=== PATIENT | male | born 1945 | race Caucasian/White ===

== ENCOUNTER → 2024-01-03 09:37 | Outpatient (REF) | payer MEDICARE, OTHER, SELFPAY | LOC: HWCARD 09:37 | PROVIDERS: ATTENDING PHYSICIAN Nurse Practitioner Family | DX: R06.02 Shortness of breath (principal) | CPT/HCPCS: 93005 ==

== ENCOUNTER → 2024-01-05 12:13 | Outpatient (REF) | payer MEDICARE, OTHER, SELFPAY | LOC: RAD 12:13 | PROVIDERS: ATTENDING PHYSICIAN Nurse Practitioner Family | DX: R79.89 Other specified abnormal findings of blood chemistry (principal); R17 Unspecified jaundice | CPT/HCPCS: 76700 ==

== ENCOUNTER 2024-01-06 14:51 | Observation (INO) | payer MEDICARE, OTHER, SELFPAY ==
[2024-01-06 09:44] VITALS: BP 169/89; BMI 28.7
--- NOTE | 2024-01-06 10:22 | ED.GENMED ---
History of Present Illness
General
Chief Complaint: Abdominal Symptoms
Source: patient and spouse
Time Seen by Provider: 01/06/24 10:07
Travel History
Have you had any contact with someone who has COVID-19?: No
Do you have any symptoms of coronavirus? Fever > 100 degrees, chills, cough, shortness of breath, sore throat, loss of taste or smell, muscle aches, or headache?: No
History of Present Illness
History of Present Illness:
78-year-old male with past medical history of hypertension, hyperlipidemia, status postcholecystectomy, sent to the emergency department by primary care provider for evaluation after patient had an abnormal abdominal ultrasound done yesterday
(triage notes and MRI was done but patient did not have an MRI). Patient states that a couple weeks ago he was feeling generally unwell, had some blood work and urinalysis done which she states were little bit abnormal but on a follow-up visit
states everything seem to be improved. He did note some abdominal discomfort which is why the ultrasound was done and initially reported possible cholecystitis however due to patient having a prior cholecystectomy this was addended to patient
possibly having a postoperative seroma. Patient's cholecystectomy was done 5 or 6 years ago at an outside institution which she did report had complications including a nonhealing wound. Patient has no concerns at this time and is stating he
otherwise feels very well
Past History
Past History
ED Past Medical History: HTN and Hypercholesterolemia
ED Past Surgical History: Cholecystectomy and Orthopedic
Social History
Tobacco: Non-smoker
Alcohol: None
Drug: None
Personal:
Living: with family
Review of Systems
Review of Systems
All Other Systems: ROS reviewed and negative except as documented in HPI and ROS
Phy Exam
Physical Exam
Physical Exam:
GENERAL: Alert , in no apparent distress
EYE: clear conjunctiva b/l
HEAD: NCAT
ENT: o/p clr, mmm.
CARDIAC: Regular rate and rhythm .
LUNGS: Clear breath sounds bilaterally, no acute respiratory distress, no wheezes/rales/rhonchi
ABDOMEN: Soft, without focal tenderness, no r/g, no cvat
NEUROLOGICAL: Alert and oriented
SKIN: Warm and dry, skin intact.
MUSCULOSKELETAL: well perfused.
PSYCH: Normal and appropriate interaction.
Scores
Heart Failure Risk
Heart Failure Risk Score: Not Applicable
Heart Score for Chest Pain Patients
STEMI patient?: Not applicable
Withdrawal Assessment of Alcohol
Withdrawal Assessment Completed?: Not applicable
Course
Orders/Labs/Results
Orders:
Orders
01/06/24 10:18
CT Abd/pelvis W Iv Cont Urgent
Comment:
Reason For Exam: abnormal US yesterday, ? RUQ seroma
01/06/24 10:23
Complete Blood Count/With Diff Urgent
Comprehensive Metabolic Panel Urgent
Lipase Urgent
01/06/24 10:31
Urinalysis Reflex To Culture Urgent
Date Specimen was Collected: 01/06/24
Time Specimen was Collected: 10:24
Urine Microscopic Reflex Cult Urgent
Urine Culture Urgent
KATELYNN Source: U
Specimen Description:
Obtained by: Random
Date Specimen was Collected: 01/06/24
Time Specimen was Collected: 10:24
Abnormal Lab Results
01/06/24 01/06/24
10:23 10:31
RBC 4.41 L 10^6/uL
(4.70-6.10)
MCV 94.1 H fL
(80.0-94.0)
MCH 31.7 H pg
(27.0-31.0)
Monocytes % 9.6 H %
(1.7-9.3)
AST 61 H U/L
(17-59)
ALT 149 H U/L
(0-50)
Alkaline Phosphatase 274 H U/L
(38-126)
Urine Ketones 1+ A
(Negative)
Urine Bilirubin 1+ A
(Negative)
Leukocyte Esterase Rfl 1+ A
(Negative)
01/06/24 10:23
01/06/24 10:23
Vital Signs
Initial and Last Documented VS:
Initial Vital Signs
Temp Pulse Resp BP Pulse Ox
97.6 F 70 16 169/89 99
01/06/24 09:44 01/06/24 09:44 01/06/24 09:44 01/06/24 09:44 01/06/24 09:44
Last Documented Vital Signs
Temp Pulse Resp BP Pulse Ox
97.6 F 70 16 169/89 99
01/06/24 09:44 01/06/24 09:44 01/06/24 09:44 01/06/24 09:44 01/06/24 09:44
MDM/Problems Addressed
Differential Diagnosis Includes:
Postoperative changes, minimal concern for any acute surgical complication, no observable signs of sepsis
MDM/Problems Addressed:
78-year-old male present emergency department request of primary care physician for evaluation after he had an abnormal ultrasound done yesterday. Patient's ultrasound initially was read as cholecystitis but in the setting of patient having prior
cholecystectomy this was addended to possibly having a postoperative seroma. Primary care still advised patient come to the ER for further evaluation. Radiology did recommend a CT scan to better evaluate the area so will order CT as well as basic
labs. Will contact patient's primary care provider following completion of studies.
*Pulse Oximetry
Patient hypoxic: no
*Critical Care Note
Total Time (30-74mins, 75-104mins- exclusive of procedures): Not Applicable
Data Reviewed
Review of Other/Old Records Reveals: Labs and Radiology Studies
Source: patient and spouse
Patient Management
Discussion with other providers: PCP
Escalation/DeEscalation of care consider admission/obs:
I spoke to the primary care provider office staff due to patient's LFT abnormalities to see if there were any previous abnormal liver function test. On the patient had an alkaline phosphatase of 596, AST of 135 and ALT of 356. Patient's liver
function tests are improved today compared to 3 days ago which is reassuring. Awaiting CT.
12:30 PM: Case was discussed with radiology that his CT also did appear that he still had a gallbladder however after consultation with patient's primary care provider office it was confirmed that patient did in fact have his gallbladder removed in
2016 at [facility]. Radiology was also able to find an outside ultrasound from [facility] in 2019 where they were evaluating the right upper quadrant surgical site which also appeared to have a similar appearance as to
what was found on CT scan today. Radiology believes this may be a fluid tract with calcification. I notified our general surgery team who will evaluate the imaging. I also notified patient's primary care provider and the nurse practitioner who
saw him yesterday.
1 PM: Studies were reviewed with general surgery who recommends that patient be admitted for MRCP and HIDA scan to further evaluate. Initial plan was to have hospitalist admit with general surgery and consult however general surgery after
evaluating the patient will admit to their service. Hospitalist team is updated that general surgery will admit.
ED Attending Note
-
Portions of this chart may have been created with voice recognition software.� Occasional wrong word or��sound alike� substitutions may have occurred due to the inherent limitations of voice recognition software.
Discharge Plan
Departure
Patient Disposition: Admit
Date of Disposition: 01/06/24
Time of Disposition: 13:03
Presentation/result/management discussed w/ accepting /: Mohsen
Discharge Problem:
Retained gallstones following laparoscopic cholecystectomy, Elevated LFTs
Prescriptions:
No Action
No Current Medications
0
Referrals:
Jose F Morton DO [Family Provider] -
Interventions
Interventions:
*Risk Screen - Suicide Last Done: 01/06/24 09:44
*Neglect/Abuse Screening Last Done: 01/06/24 09:44
*ED COVID-19 Vaccine History Last Done: 01/06/24 09:44
Discharge Date and Time
Print Language: SENEGALESE
[2024-01-06 10:38] LABS: % Basophils 0.5 % (0-2); % Eosinophils 1.7 % (0-6); % Immature Granulocytes 0.5 % (0-0.5); % Lymphocytes 20.7 % (20.5-51.1); % Monocytes 9.6 % (1.7-9.3); Absolute Eosinophils 0.1 10^3/uL (0-0.7); Absolute Lymphocytes 1.2 10^3/uL (1.2-3.4); Absolute Monocytes 0.6 10^3/uL (0.1-0.6); Absolute Neutrophils 3.9 10^3/uL (1.4-6.5); Hematocrit 41.5 % (39.0-52.0); Mean Corp Hgb Conc. 33.7 g/dL (33.0-37.0); Mean Corpuscular Hgb 31.7 pg (27.0-31.0); Mean Corpuscular Volume 94.1 fL (80.0-94.0); Mean Platelet Volume 8.8 fL (7.4-10.4); Nucleated Red Blood Cells % 0 % (-); Platelet Count 369 10^3/uL (130-400); Red Blood Cell Count 4.41 10^6/uL (4.70-6.10); Red Cell Dist. Width 12.5 % (11.5-14.5); White Blood Cell Count 5.8 10^3/uL (4.8-10.8)
[2024-01-06 11:08] LABS: Urine Albumin Trace (Neg - Trace); Urine Bilirubin 1+ (Negative); Urine Character Clear (Clear); Urine Color Yellow; Urine Glucose Negative (Negative); Urine Ketone 1+ (Negative); Urine Leukocyte 1+ (Negative); Urine Nitrite Negative (Negative); Urine Occult Blood Negative (Negative); Urine Urobilinogen 1+ (Neg - 1+)
[2024-01-06 11:09] LABS: ALT (SGPT) 149 U/L (0-50); AST (SGOT) 61 U/L (17-59); Albumin 4.5 g/dl (3.5-5.0); Alkaline Phosphatase 274 U/L (38-126); Blood Urea Nitrogen 12 mg/dl (9-20); Calcium 9.5 mg/dl (8.4-10.2); Carbon Dioxide 25 mmol/L (22-30); Chloride 106 mmol/L (98-107); Estimated Creatinine Clearance 71 ml/min; Glucose 94 mg/dl (70-99); Lipase 92 U/L (23-300); Potassium 4.3 mmol/L (3.5-5.1); Sodium 138 mmol/L (135-145); Total Bilirubin 1.3 mg/dl (0.2-1.3); Total Protein 7.8 g/dl (6.3-8.2); eGFR > 60.00
[2024-01-06 11:19] LABS: Urine Red Blood Cell 0-2 /HPF (0-2); Urine Squamous Cell 0-2 /LPF (Few)
--- NOTE | 2024-01-06 13:57 | HPS.HSE ---
Addendum entered and electronically signed by Vaibhav Connolly MD 01/06/24 14:57:
Patient seen and examined with surgical [employer]. Agree with history and physical as outlined below in H&P.
HPI: 78-year-old male who underwent laparoscopic cholecystectomy 2016 at [facility]. He reports that this was reportedly a challenging operation, had a postoperative SUSAN which was removed prior to discharge however his right lateral drain site
developed a chronic sinus tract that was intermittently emitting gallstones for 2 to 3 years postop. Reviewing medical records I actually saw him in the office in 2019 just as he was healing for good his sinus tract. I had provided him with a
prescription for CT abdomen pelvis but he had chosen to follow his symptoms expectedly after the skin site healed.
Patient and his state that he has been doing very well without any reported symptoms until he acutely began feeling sick about 3 weeks ago. Generalized abdominal discomfort, fatigue and right upper quadrant tenderness with dark urine was
noted. No fevers chills or sweats. His began looking on the Internet and recommended that he start a low-fat diet which dramatically improved his abdominal pain but his fatigue persisted. He saw his primary care provider last week and workup
ensued with laboratory testing which was notable for elevated LFTs which was notable for Alkaline phosphatase of 597, bilirubin 2.1, AST 135 and ALT of 356. His previous liver function profile testing from 2021 was normal for comparison. He
subsequently had an abdominal ultrasound yesterday which was suggestive of a 9 mm calculus in the neck of the gallbladder with mild wall thickening but no pericholecystic fluid. Common bile duct measuring 6.7 mm. No biliary ductal dilation. With
this report he was referred to the emergency department for evaluation due to possible postoperative pericholecystic fluid collection versus retained gallbladder.
Patient does not have any significant medical history. Past surgical history only notable for laparoscopic cholecystectomy, right shoulder surgery, inguinal hernia repair 1972 and umbilical herniorrhaphy.
No allergies, no regular home medications.
AFVSS
No acute distress, awake alert orient x 3
Abdomen: Soft, nondistended, slight tenderness to palpation right upper quadrant, no rebound rigidity or guarding. Previous laparoscopic surgical scars healed.
Skin: No jaundice
Eyes, no scleral icterus
Laboratory tests reviewed. White blood cell count 5.8, hemoglobin 14.0 and platelets 369. Electrolytes and BUN within normal limits. Bilirubin has improved to 1.3. AST, ALT elevated at 61 and 149 and alkaline phosphatase 274. Lipase normal.
CT abdomen/pelvis imaging reviewed: There is a fluid-filled structure in the right upper quadrant of the abdomen in the region of the previous gallbladder fossa suggestive of either retained gallbladder or postoperative chronic fluid collection.
There appears to be 2 calcifications in this area which are likely either retained stones or stones remaining in partial cholecystectomy. Some chronic scarring but no CT evidence to suggest abscess. Some thickening of the wall of the gastric
antrum which is in the region of residual gallbladder/fluid collection.
Assessment/plan: 78-year-old male with elevated LFTs and possible retained gallbladder with stones versus retained stones in the gallbladder fossa with resultant chronic seroma. Given his recent symptomatology and review of radiographic imaging
more suspicious for retained gallbladder with stones and recent episode of passed stone or debris/choledocholithiasis as cause of acute GI symptoms/fatigue.
Further workup and evaluation with MRCP to rule out choledocholithiasis and better image GB fossa
Will obtain HIDA scan as well to see if there is any communication with either suspected residual gallbladder or chronic fluid collection around retained stones.
There does not appear to be an acute infectious component therefore will continue to observe off antibiotic therapy for now
IV fluid hydration
Clear liquids until further workup completed today and into tomorrow
Repeat CBC and CMP tomorrow
Further recommendations regarding management pending radiographic imaging results.
Original Note:
Family Physician
-
Family Physician: Jose F Morton
Chief Complaint
-
Fatigue
History of Present Illness
This is an 78 yo male with a history of htn and prior cholecystectomy in 2017 at [facility]. He notes he had a drain post operatively for several days with noted black stones from it. The drain was removed a few days post operatively,
however, he notes the drain site took 2-3 years to heal. About three weeks ago, he was feeling unwell with generalized abdominal symptoms and intermittent RUQ tenderness as well as dark brown urine. He has had increasing fatigue. He started a low
fat diet with improvement in GI symptoms but fatigue persisted. He was seen and evaluated as an outpatient by GI with US and LFT's done and abnormal prompting the recommendation to present through the ED for evaluation. He currently denies pain,
nausea or vomiting. His abdomen is non-tender currently. He denies fevers or chills.
Medical History
Past Medical History
Past Medical History: Reports HTN and Hypercholesterolemia
Past Surgical History: Reports Cholecystectomy (2017), Orthopedic (shoulder) and Other (Inguinal and umbilical hernia repairs)
Social History
Tobacco: Non-smoker
Alcohol: None
Family History
Family History: Not pertinent
Allergies / Home Medications
Allergies reflects when Allergies were last updated in [facility] [facility].
Home Medications with original date entered in [employer] [facility]
Allergy/Medication List:
Patient Allergies
Allergy/AdvReac Type Severity Reaction Status Date / Time
No Known Allergies Allergy Unverified 01/06/24 09:46
�Medication �Instructions �Recorded �Confirmed �Type
No Meds [No Current Medications] 01/06/24 01/06/24 History
Review of Systems
-
History Source: Patient and Family
A 12 point ROS was completed and negative except as noted: Yes
Physical Exam
Vital Signs
Vital Signs
Temp Pulse Resp BP Pulse Ox
97.6 F 70 16 169/89 99
01/06/24 09:44 01/06/24 09:44 01/06/24 09:44 01/06/24 09:44 01/06/24 09:44
Physical Exam
General: Well Developed and Well Nourished
HEENT: Moist mucous membranes
Respiratory: Non Labored Respirations
GI: Soft, Non Tender and Non Distended
Skin: Warm and Dry
Neuro: Awake, Alert and AO x 3
Psych: Calm
Laboratory Results
-
01/06/24 10:23
01/06/24 10:23
Laboratory Results
Total Bilirubin 1.3 mg/dl (0.2-1.3) 01/06/24 10:23
AST 61 U/L (17-59) H 01/06/24 10:23
ALT 149 U/L (0-50) H 01/06/24 10:23
Alkaline Phosphatase 274 U/L (38-126) H 01/06/24 10:23
Lipase 92 U/L (23-300) 01/06/24 10:23
Data Reviewed
-
Ultrasound: Image Personally Visualized and interpreted, Report Reviewed by me, Discussed with Physician, Discussed with Patient and Discussed with Family
Lab Data: Labs Reviewed by me, Discussed with Physician, Discussed with Patient and Discussed with Family
Impression/Plan
-
IMPRESSION: 78 yo male with h/o laparoscopic cholecystectomy in 2017 presenting with elevated LFT's with abnormal US imaging on outpatient work up. RUQ discomfort resolved with low fat diet. US with retained gallstone and ?retained portion of
gallbladder vs seroma present. Afebrile, no leukocytosis. Bilirubin high normal at 1.3 with mild transaminitis.
PLAN:
Will place in observation for additional work up
Check MRCP and HIDA scan
Clear liquid diet while undergoing testing
[2024-01-06 16:00] VITALS: BP 164/90
--- NOTE | 2024-01-06 16:07 | PTCARENOTE ---
Pt arrived to [facility] from ED for elevated LFTs, abd bloating and retained gallstone. Pt AAOx3, states no pain at this time. Pt oriented to call ardon and room, bed locked and in lowest position, call ardon within reach.
[2024-01-06] MEDS: NSS 1000 IV (16:37)
[2024-01-06 23:00] VITALS: BP 131/77
[2024-01-07] MEDS: NSS 1000 IV (02:02)
[2024-01-07 05:54] LABS: Hematocrit 35.9 % (39.0-52.0); Hemoglobin 12.3 g/dL (13.0-18.0); Mean Corp Hgb Conc. 34.3 g/dL (33.0-37.0); Mean Corpuscular Hgb 31.9 pg (27.0-31.0); Mean Corpuscular Volume 93.2 fL (80.0-94.0); Mean Platelet Volume 9.1 fL (7.4-10.4); Platelet Count 297 10^3/uL (130-400); Red Blood Cell Count 3.85 10^6/uL (4.70-6.10); Red Cell Dist. Width 12.5 % (11.5-14.5); White Blood Cell Count 4.6 10^3/uL (4.8-10.8)
[2024-01-07 06:39] LABS: ALT (SGPT) 110 U/L (0-50); AST (SGOT) 45 U/L (17-59); Albumin 3.5 g/dl (3.5-5.0); Alkaline Phosphatase 225 U/L (38-126); Blood Urea Nitrogen 9 mg/dl (9-20); Calcium 8.7 mg/dl (8.4-10.2); Carbon Dioxide 24 mmol/L (22-30); Chloride 109 mmol/L (98-107); Estimated Creatinine Clearance 71 ml/min; Glucose 77 mg/dl (70-99); Sodium 138 mmol/L (135-145); Total Protein 6.4 g/dl (6.3-8.2); eGFR > 60.00
[2024-01-07 07:50] VITALS: BP 133/74
--- NOTE | 2024-01-07 12:52 | CM ---
Patient not in room. Initial assessment completed with patient's . Patient lives with his in a 2 story home with B/B on 2nd floor and 1/2 bath on 1st, 5 steps to enter, No DME or in-home services, [employer] was independent, drove and was active,
no history of psychiatric hospitalizations. Pharmacy is [facility] in [place] and PCP is Dr. Jose F Morton. Discharge Plan of Care: TBD based on diagnostic findings and medical intervention.
[2024-01-07] MEDS: BACTRIM DS 800 MG/160 MG 1 TABLET PO (13:46)
--- NOTE | 2024-01-07 13:47 | W.PN.GS2 ---
Today's Communication / Plan
-
dispo planning
Assessment / Plan
-
78-year-old male who underwent laparoscopic cholecystectomy 2017 at [facility]. He reports that this was reportedly a challenging operation, had a postoperative SUSAN which was removed prior to discharge however his right lateral drain site
developed a chronic sinus tract that was intermittently emitting gallstones for 2 to 3 years postop. Presented given abnormal outpatient imaging and LFT's done in work up for fatigue and post prandial epigastric discomfort [address]/US with
retained stone.
AFVSS
LFT's normalizing
UA + with Cx growing Staph Aureus
MRCP with dilated remnant cystic duct containing several stones proximally. No surrounding inflammatory change. NO stones within the CBD.
HIDA today with final read pending, preliminary review normal given surgical history
--Advance diet
--Start Bactrim for bacteruria
--F/U planned with cardiology for stress testing
--Tentative d/c later today if tolerating diet and final HIDA read normal
Subjective Data
-
Date of Service: January 07, 2024
Patient seen and examined at bedside. Denies pain. No n/v. Tolerated clears.
Objective Data
-
Intake and Output
01/06/24 01/07/24 01/08/24
06:59 06:59 06:59
Intake Total 2360 / 2360
Balance 2360 / 2360
Intake:
Oral fluids 960 / 960
IV fluids (Total) 1400 / 1400
Other:
Number of approximated MODERATE 4
amounts of urine
Vital Signs
Temp Pulse Resp BP Pulse Ox
98.1 F 69 18 133/74 99
01/07/24 07:50 01/07/24 07:50 01/07/24 07:50 01/07/24 07:50 01/07/24 07:50
Lab Results
01/07/24 05:05
01/07/24 05:05
Calcium 8.7 mg/dl (8.4-10.2) 01/07/24 05:05
Total Bilirubin 1.0 mg/dl (0.2-1.3) 01/07/24 05:05
AST 45 U/L (17-59) 01/07/24 05:05
ALT 110 U/L (0-50) H 01/07/24 05:05
Alkaline Phosphatase 225 U/L (38-126) H 01/07/24 05:05
Total Protein 6.4 g/dl (6.3-8.2) 01/07/24 05:05
Albumin 3.5 g/dl (3.5-5.0) 01/07/24 05:05
Physical Exam
-
NAD
ABD soft, nt, nd
--- NOTE | 2024-01-07 13:59 | W.DCSUMMARY ---
Discharge Summary
Discharge Data
Date of Admission: 01/06/24
Date of Discharge: 01/07/24
-
Pending Results: No
Hospital Course
Mr Ghosh is an 78 yo male who underwent laparoscopic cholecystectomy in 2017 at [facility]. He notes that this was a reportedly challenging operation, and he had a postoperative SUSAN which was removed prior to discharge however his right
lateral drain site developed a chronic sinus tract that was intermittently emitting gallstones for 2 to 3 years postop. He presented via the ED given abnormal outpatient imaging and LFT's done in work up for persistent fatigue and an episode of
epigastric discomfort about 3 weeks ago. Outpatient US imaging and CT imaging in the ED with noted retained gallstone stone. MRCP was done during this presentation with a dilated remnant cystic duct noted containing several stones proximally with no
surrounding inflammatory change and no stones within the CBD warranting intervention. HIDA was done with patent common hepatic and common bile ducts with expected findings of no radiopharmaceutical activity within the cystic duct stump. LFT's which
were mildly elevated as an outpatient improved with only mild elevation in ALT upon discharge and normal bilirubin. Mild leukopenia noted on date of discharge. Urine was incidentally positive for staph aureus with noted nocturia. He was discharged
on a 7 day course of Bactrim given urine culture findings with plans to continue outpatient work up with his PCP and business support professional given ongoing symptoms of fatigue. Outpatient follow up with surgery as needed.
Discharge Plan
-
Patient Disposition: Home (Routine Discharge)
Discharge Diagnosis/Procedures: Retained gallstone
Condition: Good
Diet: As tolerated, Regular and Low Fat
Activity: No restrictions
Driving Restrictions: As prior to admission
Bathing Restrictions: OK to Shower
Instructions: Gallbladder Diet
Referrals:
Vaibhav Connolly MD [Active] -
Jose F Morton DO [Family Provider] -
Prescriptions:
New
sulfamethoxazole-trimethoprim 800-160 mg Tablet
1 tab PO BID Qty: 13 0RF
Discharge Orders:
Discharge Patient (As Directed); Ordered 01/07/24
Ordered By: Yisel Pratt
Discharge Date and Time
Discharge Date/Time: 01/07/24 15:05
Print Language: TURKISH
--- NOTE | 2024-01-07 14:08 | CM ---
Patient has been medically cleared for discharge to home with no additional skilled services. will transport home.
[2024-01-07 14:45] VITALS: BP 141/76
== END 2024-01-07 15:05 | disposition home or self-care (01) ==
LOC: 2 SOUTH 14:51
PROVIDERS: Physician Assistant Medical; ADMITTING PHYSICIAN Surgery; EMERGENCY PHYSICIAN Emergency Medicine; FAMILY PHYSICIAN Internal Medicine
DX: K80.20 Calculus of gallbladder without cholecystitis without obstruction (principal); R10.9 Unspecified abdominal pain; I10 Essential (primary) hypertension; E78.00 Pure hypercholesterolemia, unspecified; R53.83 Other fatigue; R79.89 Other specified abnormal findings of blood chemistry; R74.01 Elevation of levels of liver transaminase levels; I25.10 Atherosclerotic heart disease of native coronary artery without angina pectoris; J98.11 Atelectasis; K57.30 Diverticulosis of large intestine without perforation or abscess without bleeding; R82.71 Bacteriuria; B95.61 Methicillin susceptible Staphylococcus aureus infection as the cause of diseases classified elsewhere; Z90.49 Acquired absence of other specified parts of digestive tract
CPT/HCPCS: 74177; 74181; 78226; 80053; 81003; 81015; 83690; 85025; 85027; 87086; 87147; 87186; 99285; A9537; G0378; Q9967

== ENCOUNTER → 2024-01-14 12:32 | Outpatient (REF) | payer MEDICARE, OTHER, SELFPAY | LOC: HWRCS 12:32 | PROVIDERS: ATTENDING PHYSICIAN Nurse Practitioner Family; FAMILY PHYSICIAN Internal Medicine | DX: R82.998 Other abnormal findings in urine (principal); I10 Essential (primary) hypertension; R06.02 Shortness of breath | CPT/HCPCS: 93306 ==

== ENCOUNTER → 2024-01-24 08:20 | Outpatient (REF) | payer MEDICARE, OTHER, SELFPAY | LOC: DHCBC/DCA 08:20 | PROVIDERS: ATTENDING PHYSICIAN Nurse Practitioner Family | DX: R06.02 Shortness of breath (principal); I10 Essential (primary) hypertension | CPT/HCPCS: 78452; 93017; A9500; J2785 ==

== ENCOUNTER → 2024-06-21 10:06 | Outpatient (REF) | payer MEDICARE, OTHER, SELFPAY ==
[2024-06-21 10:25] LABS: Urine Albumin Trace (Neg - Trace); Urine Bilirubin 3+ (Negative); Urine Character Clear (Clear); Urine Glucose Negative (Negative); Urine Ketone Negative (Negative); Urine Leukocyte 1+ (Negative); Urine Nitrite Positive (Negative); Urine Occult Blood Negative (Negative); Urine Specific Gravity 1.015 (<1.030); Urine Urobilinogen 3+ (Neg - 1+)
[2024-06-21 10:27] LABS: % Basophils 0.2 % (0-2); % Eosinophils 0.6 % (0-6); % Immature Granulocytes 0.4 % (0-0.5); % Lymphocytes 9.1 % (20.5-51.1); % Monocytes 9.5 % (1.7-9.3); % Neutrophils 80.2 % (42.2-75.2); Absolute Eosinophils 0.1 10^3/uL (0-0.7); Absolute Lymphocytes 0.9 10^3/uL (1.2-3.4); Hematocrit 43.9 % (39.0-52.0); Hemoglobin 15.2 g/dL (13.0-18.0); Mean Corp Hgb Conc. 34.6 g/dL (33.0-37.0); Mean Corpuscular Hgb 31.7 pg (27.0-31.0); Mean Corpuscular Volume 91.5 fL (80.0-94.0); Mean Platelet Volume 9.4 fL (7.4-10.4); Nucleated Red Blood Cells % 0 % (-); Platelet Count 239 10^3/uL (130-400); Red Cell Dist. Width 12.7 % (11.5-14.5)
[2024-06-21 10:51] LABS: Urine Color Orange
[2024-06-21 10:53] LABS: ALT (SGPT) 420 U/L (0-50); AST (SGOT) 354 U/L (17-59); Albumin 4.6 g/dl (3.5-5.0); Alkaline Phosphatase 187 U/L (38-126); Amylase 98 U/L (30-110); Blood Urea Nitrogen 13 mg/dl (9-20); Calcium 9.4 mg/dl (8.4-10.2); Carbon Dioxide 23 mmol/L (22-30); Chloride 107 mmol/L (98-107); Glucose 100 mg/dl (70-99); Lipase 61 U/L (23-300); Potassium 3.9 mmol/L (3.5-5.1); Sodium 144 mmol/L (135-145); Total Protein 7.6 g/dl (6.3-8.2); eGFR > 60.00
[2024-06-21 10:58] LABS: Urine Mucus Many
[2024-06-21 10:59] LABS: Urine Squamous Cell 16-20 /LPF (Few); Urine Urothelial Cell 16-20 /LPF (FEW)
[2024-06-21 11:05] LABS: Urine Amorphous Seen; Urine Bacteria Few (Negative); Urine Red Blood Cell 0-2 /HPF (0-2); Urine White Cell 16-20 /HPF (0-5)
== END ==
LOC: HWRAD 10:06
PROVIDERS: ATTENDING PHYSICIAN Nurse Practitioner Family; FAMILY PHYSICIAN Internal Medicine
DX: R10.9 Unspecified abdominal pain (principal); I10 Essential (primary) hypertension; E78.2 Mixed hyperlipidemia; K91.86 Retained cholelithiasis following cholecystectomy
CPT/HCPCS: 36415; 74018; 74177; 80053; 81003; 81015; 82150; 83690; 85025; 87086; 87147; 87186; 93005; Q9967

== ENCOUNTER → 2024-11-05 10:42 | Outpatient (REF) | payer MEDICARE, OTHER, SELFPAY | LOC: MRI 3T 10:42 | PROVIDERS: ATTENDING PHYSICIAN Internal Medicine Gastroenterology; FAMILY PHYSICIAN Internal Medicine | DX: K80.50 Calculus of bile duct without cholangitis or cholecystitis without obstruction (principal) | CPT/HCPCS: 74181 ==